=== PATIENT | male | born 1975 | race Caucasian/White ===

== ENCOUNTER → 2025-01-02 06:46 | Outpatient (REF) | payer OTHER, SELFPAY | LOC: RAD 06:46 | PROVIDERS: ATTENDING PHYSICIAN Internal Medicine Gastroenterology; FAMILY PHYSICIAN Internal Medicine Rheumatology | DX: R10.12 Left upper quadrant pain (principal) | CPT/HCPCS: 74177; Q9967 ==

== ENCOUNTER 2025-03-02 06:16 | Day surgery (SDC) | payer OTHER, SELFPAY | END 2025-03-02 09:50 | disposition home or self-care (01) | LOC: GI 06:16 | PROVIDERS: ATTENDING PHYSICIAN Internal Medicine Gastroenterology | DX: Z12.11 Encounter for screening for malignant neoplasm of colon (principal); K57.30 Diverticulosis of large intestine without perforation or abscess without bleeding; K62.1 Rectal polyp; Z83.719 Family history of colon polyps, unspecified | CPT/HCPCS: 45380; 88305 ==